=== PATIENT | female | born 1970 | race Caucasian/White ===

== ENCOUNTER → 2017-04-29 | Outpatient (CLI) | payer OTHER ==
[~2017-04-29] MED LIST: NORCO 5-325 TA1 EACH PO; OMNICEF DPS300 MG PO; PHENERGAN DPS25 MG PO; PRILOSEC DPS20 MG PO
== END | disposition home or self-care (01) ==
LOC: PTH.S 10:58
DX: Z01.818 Encounter for other preprocedural examination (principal); Z79.2 Long term (current) use of antibiotics

== ENCOUNTER 2017-05-05 05:40 | Observation (INO) | payer OTHER ==
[~2017-05-05] VITALS: Ht 160 cm; Wt 73.4 kg
[2017-05-06] MEDS ORDERED: OMNICEF DPS300 MG PO (18:07)
[2017-05-06] MEDS ORDERED: PHENERGAN DPS25 MG PO (18:07)
[2017-05-06] MEDS ORDERED: NORCO 5-325 TA1 EACH PO (18:07)
[2017-05-06] MEDS ORDERED: PRILOSEC DPS20 MG PO (18:07)
--- NOTE | 2017-05-18 08:04 | OR ---
ADMIT: 05/05/2017 RM/LOC: 625 [facility] MR#: [id number] [facility]#: [id number] [address] [address] MILAGRO IRBY [address] [facility] [place] [address] Operative/Delivery Room Report SEX: F AGE: 46 : 1970 SURGERY DATE: 05/05/2017 SURGEON: Domo Melvin MD PREOPERATIVE DIAGNOSES: Thyroid nodules, left thyroid lobe and isthmus. POSTOPERATIVE DIAGNOSES: Thyroid nodules, left thyroid lobe and isthmus. OPERATION: Left thyroid lobectomy and isthmectomy. ANESTHESIA: General oral endotracheal. ESTIMATED BLOOD LOSS: 20 mL. COMPLICATIONS: None. DRAINS: Jose Raul-Colunga 7 mm. DESCRIPTION OF PROCEDURE: With the patient in the supine position under general oral endotracheal anesthesia, her eyes were taped. The neck was extended slightly. The anterior neck was prepped with ChloraPrep, allowed 3 minutes to dry and the patient was draped sterilely. An incision was made following natural skin crease, marked preoperatively, carried through the skin, subcutaneous tissue, and platysma muscle. Skin flaps were elevated superiorly and inferiorly subplatysmally exposing the thyroid isthmus. The left thyroid lobe was exposed by blunt dissection using hemostats and retraction of the strap muscles laterally. The lobe was grasped with tenaculum, retracted medially, and dissection was then continued directly on the thyroid capsule. The inferior and superior thyroid artery and vein were clamped, divided, and coagulated as was the middle thyroid vein. During the dissection, the recurrent laryngeal nerve was identified, its identity and function confirmed intact by NIM-2 stimulation. The tissue consistent with both superior and inferior parathyroid glands were identified and preserved. The gland was pedicled at Dodge's ligament which was transected with Metzenbaum scissors and the gland pedicled to the isthmus. A nodule was present on the right side of the isthmus and the isthmus and nodule were included with the excised tissue and sent for histologic examination. The ADMIT: 05/05/2017 RM/LOC: 625 [facility] MR#: [id number] [address] [address] MAHAMED, MILAGRO Berger [address] [place] [id number] Operative/Delivery Room Report SEX: F AGE: 46 : 1970 wound was irrigated with saline, cleaned with suctioning, and hemostasis assured by clamping and coagulation. A 7 mm Jose Raul-Colunga drain was placed, brought out the right side of strap muscles and incision. The wound was closed in layers with 3-0 chromic catgut to the midline strap muscles, inverted simple stitches to the platysmal layer, and a running horizontal mattress suture to the skin. The drain was sutured to the skin with silk. Frozen section revealed a benign-appearing thyroid tissue. There was no evidence of carcinoma. Right thyroid lobe was examined during the procedure by inspection and palpation with normal in appearance and did not require resection. She emerged from general anesthesia in the operative room, was extubated in the operating room and transferred to the recovery room in good condition. Domo Melvin MD/ justino JOB #: [id number] CC: Domo Melvin, Attending Physician Chris Deleon, Family Physician
--- NOTE | 2017-05-18 08:04 | HP ---
ADMIT: 05/05/2017 RM/LOC: [facility] MR#: [id number] ACC#: [id number] [address] [facility] [address] [place] [id number] MILAGRO IRBY [address] [place] [address] Pre-OP History and Physical SEX: F AGE: 46 : 1970 DATE OF SERVICE: HISTORY OF PRESENT ILLNESS: Milagro is 46 years old. She is admitted for thyroid lobectomy, left-sided, and diagnosis and treatment of thyroid nodules. Thyroid ultrasound shows a largest nodule in the left inferior thyroid lobe measuring 2.2 cm. There is a second nodule that is smaller but complex in the left upper lobe and also a 13 mm solid nodule in the isthmus, right-sided, midline. Remainder of the right thyroid lobe appears normal on ultrasound. Thyroid function tests show her to be euthyroid and she did not have past history of thyroid disease. She does not have hyper or hypothyroid symptoms, laryngeal or pharyngeal compression symptoms, and her family history is negative for known thyroid cancer. There is family history of bleeding tendencies in patient's father's side but no diagnosed coagulopathies. PAST MEDICAL HISTORY: Positive for hysterectomy due to benign fibroids, breast biopsy showing histologic findings of fibrocystic disease. REVIEW OF SYSTEMS: Positive for acid reflux. She does not have known lower respiratory, cardiovascular, GI, , hematologic, or neurologic disorders. SOCIAL HISTORY: She drinks caffeine. She does not drink alcohol, nor does she use tobacco. FAMILY HISTORY: No known anesthetic complications. There is family history of bleeding tendencies in patient's father. PHYSICAL EXAMINATION: GENERAL: Milagro is 46 years old. No acute distress. HEENT: Her pupils are equal. Conjunctivae clear. No nystagmus, proptosis, or lid retraction. Ears; canals, TMs, and middle ears normal. Nose; airway patent. No mucus or purulence. Mouth and pharynx; good symmetry. Larynx; good symmetry, structure, and function. NECK: Diffuse fullness in thyroid gland, left side more prominent than right, and irregular palpable characteristics on left side but without distinguished mass. No cervical adenopathy. LUNGS: Clear. ADMIT: 05/05/2017 RM/LOC: [facility] MR#: [id number] [address] [address] MILAGRO IRBY [address] [place] [address] Pre-OP History and Physical SEX: F AGE: 46 : 1970 HEART: Rhythm regular. EXTREMITIES: Normal. IMPRESSION: Thyroid nodules, predominantly left lobe with dominant nodule, inferior pole 2.2 cm. A smaller nodule present in left superior pole and a third nodule thyroid isthmus right of midline. PLAN: Excisional biopsy, left thyroid lobe, and isthmus with frozen section. If malignancy of nodule is confirmed, we will proceed with total thyroidectomy. The patient is in good understanding of the rationale and the risks including risks to recurrent laryngeal nerves, parathyroid glands, as well as resultant surgical scar, risk of wound bleeding and wound infection. Domo Melvin MD/ justino JOB #: [id number] CC: Domo Melvin, Attending Physician UNKNOWN, Family Physician
== END 2017-05-06 15:20 | disposition home or self-care (01) ==
LOC: WOR 05:40 → 6PED 09:20
PROVIDERS: ADMIT Otolaryngology
PROC: 0GTG0ZZ Resection of Left Thyroid Gland Lobe, Open Approach (ICD-10-PCS; principal; 2017-05-05)
DX: E04.2 Nontoxic multinodular goiter (principal); K21.9 Gastro-esophageal reflux disease without esophagitis; Z90.710 Acquired absence of both cervix and uterus; Z98.890 Other specified postprocedural states